=== PATIENT | female | born 1970 | race Two or more races ===

== ENCOUNTER 2018-02-05 14:15 | Inpatient (IN) | payer OTHER ==
[~2018-02-05] VITALS: Ht 172.7 cm; Wt 59.0 kg
[2018-02-05] MEDS ORDERED: TOPROL XL25 MG PO (14:36)
[2018-02-05] MEDS ORDERED: REBIF 44 M44 MCG/0.5 (14:36)
[2018-02-05] MEDS ORDERED: MULTI-DAY PLUS1 EACH PO (14:37)
[2018-02-12] MEDS ORDERED: LOPRESSOR25 MG PO (11:47)
[2018-02-12] MEDS ORDERED: INTESTINEX680 M1 PO (11:47)
[2018-02-12] MEDS ORDERED: LEVAQUIN750 MG PO (11:51)
[2018-02-12] MEDS ORDERED: NEURONTIN300 MG PO (11:51)
[2018-02-12] MEDS ORDERED: PERCOCET 5-3251 EACH PO (11:51)
== END 2018-02-12 13:55 | disposition home or self-care (01) | DRG 331 ==
LOC: SURG 02-07 07:34 → RECOVERY 02-08 14:15 → SURG 02-08 14:15 → SURH 02-10 10:01
PROVIDERS: Surgery
PROC: 4A12X4Z Monitoring of Cardiac Electrical Activity, External Approach (ICD-10-PCS; 2018-02-07)
PROC: 30233N1 Transfusion of Nonautologous Red Blood Cells into Peripheral Vein, Percutaneous Approach (ICD-10-PCS; 2018-02-07)
PROC: 07TC4ZZ Resection of Pelvis Lymphatic, Percutaneous Endoscopic Approach (ICD-10-PCS; 2018-02-08)
PROC: 0FB04ZX Excision of Liver, Percutaneous Endoscopic Approach, Diagnostic (ICD-10-PCS; 2018-02-08)
PROC: 0DTF4ZZ Resection of Right Large Intestine, Percutaneous Endoscopic Approach (ICD-10-PCS; principal; 2018-02-08 16:00)
DX: C18.0 Malignant neoplasm of cecum (principal); R59.0 Localized enlarged lymph nodes; D50.0 Iron deficiency anemia secondary to blood loss (chronic); G35 Multiple sclerosis; R00.0 Tachycardia, unspecified